=== PATIENT | female | born 1960 | race Caucasian/White ===

== ENCOUNTER 2016-08-06 09:52 | Emergency (ER) | payer OTHER ==
[2016-08-06 10:03] VITALS: BP 156/97; PULSE 74; TEMP 97.9; BMI 20.3
--- NOTE | 2016-08-06 10:50 | PDOC ---
History of Present Illness <Corona Pham - Last Filed: 08/06/16 11:29> - General History Source: Patient Exam Limitations: No Limitations - History of Present Illness Initial Comments: 08/06/16 11:49 The patient is a 56-year-old female, with a significant past medical history of HTN and paranoid schizophrenia, who presents to the ED with elevated BP today. The patient states that she meaured her BP to be 200/99 this morning. She reports taking her meds before coming to the ED. Patient states that she usually takes 40 mg of enalapril once a day everyday, she reports taking an extra tablet today. The patient states she always checks her BP in the morning after taking her meds and typically runs high, typically in 170s. She reports not being able to sleep recently because she ran out of her restoril medication. Pt denies any cp, sob, headache, dizziness, fever/chills, cough, abd pain, n/v, leg swelling. Pt sates she is compliant with her medications. The patient denies having any other symptoms. PCP: Dr. Adna <Ara Ho - Last Filed: 08/06/16 12:01> - General Chief Complaint: Blood Pressure Problem Stated Complaint: BLOOD PRESSURE PROBLEM Time Seen by Provider: 08/06/16 10:46 Past History - Past Medical History HTN: Yes Hypercholesterolemia: Yes Psychiatric Problems: Yes (Paranoid Schizophrenic) - Psycho/Social/Smoking Cessation Hx Suicidal Ideation: No Smoking Status: Yes Smoking History: Never smoked Number of Cigarettes Smoked Daily: 40 Information on smoking cessation initiated: No Hx Alcohol Use: No Drug/Substance Use Hx: No Substance Use Type: None <Corona Pham - Last Filed: 08/06/16 11:29> <Ara Ho - Last Filed: 08/06/16 12:01> - Past Medical History Allergies/Adverse Reactions: Allergies Allergy/AdvReac Type Severity Reaction Status Date / Time No Known Allergies Allergy Verified 11/07/12 16:48 Review of Systems - Review of Systems Able to Perform ROS?: Yes Comments:: 08/06/16 11:49 CONSTITUTIONAL: No reported: Fever, Chills, Diaphoresis, Generalized Weakness, Malaise, Loss of Appetite HEENT: No reported: Rhinorrhea, Nasal Congestion, Throat Pain, Throat Swelling, Difficulty Swallowing, Mouth Swelling, Ear Pain, Eye Pain, Visual Changes CARDIOVASCULAR: No reported: Chest Pain, Syncope, Palpitations, Irregular Heart Rate, Lightheadedness, Peripheral Edema RESPIRATORY: No reported: Cough, Shortness of Breath, SOB with Exertion, Orthopnea, Wheezing , Stridor, Hemoptysis GASTROINTESTINAL: No reported: Abdominal pain, Abdominal Distension, Nausea, Vomiting, Diarrhea, Constipation, Melena, Hematochezia GENITOURINARY: No reported: Dysuria, Frequency, Urgency, Hesitancy, Flank Pain, Genital Pain MUSCULOSKELETAL: No reported: Myalgia, Arthralgia, Joint Swelling, Back pain, Neck Pain SKIN: No reported: Rash, Itching, Pallor HEMEATOLOGIC/IMMUNOLOGIC: No reported: Easy Bleeding, Easy Bruising, Lymphadenopathy, Frequent infections ENDOCRINE: No reported: Unexplained Weight Gain, Unexplained Weight Loss, Heat Intolerance , Cold Intolerance NEUROLOGIC: No reported: Headache, Focal Weakness, Paresthesias, Vertigo, Lightheadedness, Unsteady Gait, Seizure, Mental Status Changes, Incontinence PSYCHIATRIC: +paranoia, No reported: SI/HI <Ara Ho - Last Filed: 08/06/16 12:01> *Physical Exam - Vital Signs Last Vital Signs Temp Pulse Resp BP Pulse Ox 97.9 F 74 18 156/97 100 08/06/16 09:54 08/06/16 09:54 08/06/16 09:54 08/06/16 09:54 08/06/16 09:54 <Ankit,Corona - Last Filed: 08/06/16 11:29> - Vital Signs Last Vital Signs Temp Pulse Resp BP Pulse Ox 97.9 F 74 18 156/97 100 08/06/16 09:54 08/06/16 09:54 08/06/16 09:54 08/06/16 09:54 08/06/16 09:54 - Physical Exam Comments: 08/06/16 11:50 GENERAL: The patient is awake, alert, and fully oriented, Nontoxic - in no acute distress. HEAD: Normocephalic, atraumatic. EYES: extraocular movements intact, sclera anicteric, conjunctiva clear. ENT: Normal voice, Moist mucous membranes. NECK: Normal range of motion, supple LUNGS: Breath sounds equal, clear to auscultation bilaterally. No wheezes, no rhonchi, no rales. HEART: Regular rate and rhythm, without murmur, rub or gallop. ABDOMEN: Soft, nontender, EXTREMITIES: Normal range of motion, trace edema NEUROLOGICAL: No facial assymetry, Normal speech, PSYCH: flat affect with mild paranoia, no si/hi SKIN: Warm, Dry, normal turgor, <Ara Ho - Last Filed: 08/06/16 12:01> Medical Decision Making - Medical Decision Making 08/06/16 11:01 56y F hx of htn, paranoid schizophrenia presents with htn - pt normall is on enalapril, and is complaint with her meds, this morning, her bp was elevated to sbp 200s, but without other complaints, she took an extra dose of her meds and bp is normal here. pt rquesting refil of her restoril until she sees her psychiatrist on 08/13. as pt is otherwise asyptomatic and her current bp is almost normal will d/c the pt to fu with PMD for further mangaement of her bp A portion of this note was documented by scribe services under my direction. I have reviewed the details of the note, within reason, and agree with the documentation with the following case summary and management plan written by me 08/06/16 11:26 will defer rx for restoril as it has side effect of causing increased paranoia - will have pt fu with dr. sargent. fu with dr. adan for her bp - will have her keep a log of her bp to show him her last rx was 07/17 for 30 tablets. return precautions were discussed I discussed the physical exam findings, ancillary test results and final diagnoses with the patient. I answered all of the patient's questions. The patient was satisfied with the care received and felt comfortable with the discharge plan and treatment plan. The patient will call their primary care physician within 24 hours to arrange follow-up and will return to the Emergency Department with any new, persistent or worsening symptoms. <Corona Pham - Last Filed: 08/06/16 11:29> *DC/Admit/Observation/Transfer - Discharge Dispostion Admit: No <Corona Pham - Last Filed: 08/06/16 11:29> - Attestations Scribe Attestion: 08/06/16 12:00 Documentation prepared by Ara Ho, acting as bacteriologist medical for Corona Pham MD. <Ara Ho - Last Filed: 08/06/16 12:01> Diagnosis at time of Disposition: HTN (hypertension) Qualifiers: Hypertension type: essential hypertension Qualified Code(s): I10 - Essential ( primary) hypertension - Discharge Dispostion Disposition: HOME Condition at time of disposition: Improved - Referrals Referrals: Kulwinder Adan MD [Primary Care Provider] - - Patient Instructions Printed Discharge Instructions: DI for High Blood Pressure Additional Instructions: Return to the emergency department immediately with ANY new, persistent or worsening symptoms including headache, vision changes, chest pain, shortness of breath or any other concerns. You MUST call and follow up with Dr. Adan and Dr. Sargent for further evaluation of your symptoms. Results were discussed with you. Please make sure your doctor reviews the results of your emergency evaluation. Print Language: CITIZEN OF [place]
== END 2016-08-06 11:36 | disposition home or self-care (01) ==
LOC: JER 09:52
DX: I10 Essential (primary) hypertension (principal); E78.00 Pure hypercholesterolemia, unspecified; F20.0 Paranoid schizophrenia; Z76.0 Encounter for issue of repeat prescription
CPT/HCPCS: 99281-25

== ENCOUNTER 2017-05-22 10:17 | Emergency (ER) | payer OTHER ==
[2017-05-22 10:23] VITALS: BMI 19.5
--- NOTE | 2017-05-22 10:53 | PDOC ---
History of Present Illness - General Chief Complaint: RX Refill Stated Complaint: RX REFILL Time Seen by Provider: 05/22/17 10:49 History Source: Patient - History of Present Illness Timing/Duration: other Past History - Past Medical History Allergies/Adverse Reactions: Allergies Allergy/AdvReac Type Severity Reaction Status Date / Time No Known Allergies Allergy Verified 05/22/17 10:22 Home Medications: Ambulatory Orders Azelastine HCl [Astepro] 2 spr NS DAILY 08/06/16 Benztropine Mesylate 2 mg PO HS 08/06/16 Docusate Sodium [Colace -] 200 mg PO ASDIR PRN 08/06/16 Enalapril Maleate [Vasotec] 20 mg PO BID 08/06/16 Hydroxyzine Pamoate [Vistaril -] 50 mg PO HS 08/06/16 Loratadine [Alavert] 10 mg PO DAILY 08/06/16 Methimazole [Tapazole -] 5 mg PO BID 08/06/16 Metoprolol Succinate [Toprol Xl -] 25 mg PO DAILY 08/06/16 Risperidone [Risperdal] 1 mg PO BID 08/06/16 Solifenacin Succinate [Vesicare -] 10 mg PO DAILY 08/06/16 Trazodone HCl [Desyrel -] 150 mg PO HS 08/06/16 Temazepam [Restoril -] 30 mg PO ASDIR #4 tab MDD 30 mg 05/22/17 HTN: Yes Hypercholesterolemia: Yes Psychiatric Problems: Yes (Paranoid Schizophrenic) - Suicide/Smoking/Psychosocial Hx Smoking Status: Yes Smoking History: Never smoked Number of Cigarettes Smoked Daily: 40 Hx Alcohol Use: No Drug/Substance Use Hx: No Substance Use Type: None Review of Systems - Review of Systems Constitutional: No: Chills, Fever Respiratory: No: Shortness of Breath Cardiac (ROS): No: Chest Pain Neurological: No: Headache, Dizziness *Physical Exam - Vital Signs Last Vital Signs Temp Pulse Resp BP Pulse Ox 98.4 F 89 18 172/104 97 05/22/17 10:19 05/22/17 10:19 05/22/17 10:19 05/22/17 10:19 05/22/17 10:19 - Physical Exam General Appearance: Yes: Appropriately Dressed. No: Apparent Distress HEENT: positive: Normal Voice Neck: positive: Supple Respiratory/Chest: negative: Respiratory Distress Integumentary: positive: Dry, Warm Neurologic: positive: Fully Oriented, Alert, Normal Mood/Affect Medical Decision Making - Medical Decision Making 05/22/17 10:53 57-year-old female, history of hypertension, paranoid schizophrenia, has been on temazepam for insomnia for over 20 years as per patient and recently ran out. States she accidentally stepped on her last few tabs and not able to see her psychiatrist until Wednesday. Denies any acute medical complaints at this time. Patient well-appearing and stable. Will give small dose of temazepam until patient can follow-up with her psychiatrist on Wednesday. ISTOP reviewed and no documentation of suspicious activity 05/22/17 11:29 *DC/Admit/Observation/Transfer Diagnosis at time of Disposition: Medication refill - Discharge Dispostion Disposition: HOME Condition at time of disposition: Good - Prescriptions Prescriptions: Temazepam [Restoril -] 30 mg PO ASDIR #4 tab MDD 30 mg - Patient Instructions Additional Instructions: Please follow up with you psychiatrist on Wednesday for additional refill
[2017-05-22 11:26] VITALS: BP 168/98; PULSE 80; TEMP 98.6
== END 2017-05-22 11:13 | disposition home or self-care (01) ==
LOC: JER 10:17
DX: G47.00 Insomnia, unspecified (principal); I10 Essential (primary) hypertension; F20.0 Paranoid schizophrenia; E78.00 Pure hypercholesterolemia, unspecified
CPT/HCPCS: 99283-25

== ENCOUNTER 2018-12-17 11:21 | Emergency (ER) | payer OTHER ==
[2018-12-17 11:31] VITALS: BP 144/98; PULSE 86; TEMP 98.1; BMI 23.7
--- NOTE | 2018-12-17 11:46 | PDOC ---
History of Present Illness - General Chief Complaint: Rash Stated Complaint: WOUND Time Seen by Provider: 12/17/18 11:35 History Source: Patient Exam Limitations: No Limitations - History of Present Illness Initial Comments: 12/17/18 11:55 Patient came for reevaluation of excoriation between both of her upper thighs. Was seen here a few days ago, prescribed Bactroban by one of her physicians and encouraged to continues itch use. Patient comes in today with excoriated and scabbed lesions to her upper inner thighs at sites where skin would rub. 12/17/18 11:56 Past History - Travel Traveled outside of the country in the last 30 days: No Close contact w/someone who was outside of country & ill: No - Past Medical History Allergies/Adverse Reactions: Allergies Allergy/AdvReac Type Severity Reaction Status Date / Time No Known Allergies Allergy Verified 06/05/17 11:55 Home Medications: Ambulatory Orders Azelastine HCl [Astepro] 2 spr NS DAILY 08/06/16 Benztropine Mesylate 2 mg PO HS 08/06/16 Docusate Sodium [Colace -] 200 mg PO ASDIR PRN 08/06/16 Enalapril Maleate [Vasotec] 20 mg PO BID 08/06/16 Loratadine [Alavert] 10 mg PO DAILY 08/06/16 Methimazole [Tapazole -] 5 mg PO BID 08/06/16 Metoprolol Succinate [Toprol Xl -] 25 mg PO DAILY 08/06/16 Risperidone [Risperdal] 1 mg PO BID 08/06/16 Solifenacin Succinate [Vesicare -] 10 mg PO DAILY 08/06/16 hydrOXYzine PAMOATE [Vistaril -] 50 mg PO HS 08/06/16 traZODone HCL [Desyrel -] 150 mg PO HS 08/06/16 Temazepam [Restoril -] 30 mg PO ASDIR #4 tab MDD 30 mg 05/22/17 COPD: No HTN: Yes Hypercholesterolemia: Yes Psychiatric Problems: Yes (Paranoid Schizophrenic) - Immunization History Immunization Up to Date: No - Suicide/Smoking/Psychosocial Hx Smoking Status: Yes Smoking History: Never smoked Have you smoked in the past 12 months: No Number of Cigarettes Smoked Daily: 10 Information on smoking cessation initiated: No Hx Alcohol Use: No Drug/Substance Use Hx: No Substance Use Type: None Review of Systems - Review of Systems Able to Perform ROS?: Yes Is the patient limited Mauritian proficient: Yes Constitutional: Yes: Symptoms Reported, See HPI. No: Fever, Loss of Appetite HEENTM: No: Symptoms Reported Integumentary: Yes: Symptoms Reported, See HPI, Dryness. No: Bruising *Physical Exam - Vital Signs Last Vital Signs Temp Pulse Resp BP Pulse Ox 98.1 F 86 16 144/98 98 12/17/18 11:27 12/17/18 11:27 12/17/18 11:27 12/17/18 11:12/17/18 11:27 - Physical Exam General Appearance: Yes: Appropriately Dressed, Disheveled (and unkempt) Neck: positive: Supple Extremity: positive: Normal Capillary Refill, Normal Range of Motion, Tender ( to excoritated) Integumentary: positive: Normal Color, Dry, Warm, Other (No purulent drainage, no erythema, no exquisite tenderness although skin appears to be in various stages of healing with scabbing. Has appearance that scabs have been removed). 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 NML intact, Fully Oriented, Alert, Normal Mood/ Affect, Normal Response *DC/Admit/Observation/Transfer Diagnosis at time of Disposition: Abrasion - Discharge Dispostion Condition at time of disposition: Stable Decision to Admit order: No - Referrals - Patient Instructions Printed Discharge Instructions: DI for Abrasion Additional Instructions: Rest, keep cool and dry- avoid strenuous activity or hot /humid environments Less hot showers, no abrasive soaps May use heavy creams like Eucerin or Cetaphil to keep skin moist / vaseline to protect against friction rubbing COntinue with Bactroban 3 times a day until healed- use babdaids to protect skin and scabbing Followup with PMD in one week if no resolution Make appointment with associate professor of biblical studies for evaluation when possible - Post Discharge Activity
== END 2018-12-17 11:48 | disposition home or self-care (01) ==
LOC: JERFT 11:21
DX: S70.312A Abrasion, left thigh, initial encounter (principal); S70.311A Abrasion, right thigh, initial encounter; X58.XXXA Exposure to other specified factors, initial encounter; Y93.9 Activity, unspecified; Y92.89 Other specified places as the place of occurrence of the external cause; Y99.8 Other external cause status; I10 Essential (primary) hypertension; E78.00 Pure hypercholesterolemia, unspecified; F20.0 Paranoid schizophrenia
CPT/HCPCS: 99281-25